=== PATIENT | female | born 2000 | race Two or more races ===

== ENCOUNTER 2023-07-18 15:57 | Outpatient (CLI) | payer OTHER | END 2023-07-18 16:04 | disposition home or self-care (01) | LOC: PRENATAL 15:57 | PROVIDERS: ATTEND Obstetrics & Gynecology Maternal & Fetal Medicine | DX: O35.3XX0 Maternal care for (suspected) damage to fetus from viral disease in mother, not applicable or unspecified (principal); O44.00 Complete placenta previa NOS or without hemorrhage, unspecified trimester; Z3A.34 34 weeks gestation of pregnancy ==

== ENCOUNTER 2023-08-16 15:22 | Inpatient (IN) | payer OTHER ==
[~2023-08-16] VITALS: Ht 170.2 cm; Wt 77.1 kg
[2023-08-18] MEDS ORDERED: PRENATABS RX T1 EACH PO (08:29)
[2023-08-18 08:42] LABS: URINE APPEARANCE Clear; URINE BILIRRUBIN Negative (NEGATIVE); URINE BLOOD Negative; URINE COLOR Yellow; URINE GLUCOSE Negative (NEGATIVE); URINE LEUKOCYTE Moderate; URINE NITRATE Negative; URINE PROTEIN Negative (NEGATIVE); URINE UROBILINOGEN 0.2 E.U./dl
[2023-08-18 08:44] LABS: URINE BACTERIA 2524.7 uL (0.0-1933); URINE EPITHELIAL CELLS 58.1 uL (0.0-38.8); URINE RBC 2.7 uL (0.0-20.8); URINE WBC 130.9 uL (0.0-23.2)
[2023-08-18 08:45] LABS: HEMATOCRIT 32.2 % (36.0-45.00); MEAN CELL VOLUME 87.6 fL (80.00-100.00); MEAN CORPUSCULAR HGB CONC 33.9 g/dl (32.0-36.0); PLATELET COUNT 222 K/uL (150-450); RED BLOOD COUNT 3.68 M/uL (4.00-6.00); RED CELL DISTRIBUTION WIDTH 13.9 % (11.5-14.5)
[2023-08-18] MEDS ORDERED: RINGERS SOLUTION,LACTATED 1,000 ML IV SCH (08:45)
[2023-08-18] MEDS ORDERED: MISOPROSTOL 25 MCG/4 ML GEL.W.APPL VAG ONE (08:45)
[2023-08-18] MEDS ORDERED: MISOPROSTOL 25 MCG/4 ML GEL.W.APPL ONE (08:50)
[2023-08-18 09:14] LABS: HEMOGLOBIN 10.9 g/dL (12.0-15.00); MEAN CORPUSCULAR HEMOGLOBIN 29.6 pg (27.00-32.0)
[2023-08-18 09:16] LABS: ALBUMIN 2.8 gm/dL (3.4-5.0); BILIRUBIN TOTAL 0.36 mg/dL (0.3-1.2); CALCIUM 8.9 mg/dL (8.5-10.1); CREATININE SERUM 0.72 mg/dL (0.55-1.02); GFR 101.29; GLOBULINA 3.7 G/DL (2.4-3.5); POTASSIUM 4.14 mEq/L (3.5-5.1); TOTAL PROTEIN 6.5 gm/dL (6.4-8.2)
[2023-08-18 09:21] LABS: INR < 0.93; PARTIAL THROMBOPLASTIN TIME 27.2 SECONDS (22.0-34.0); PROTHROMBIN TIME 9.8 SECONDS (9.0-11.5)
[2023-08-18] MEDS ORDERED: OXYTOCIN 500 ML IV SCH (12:45)
[2023-08-18] MEDS ORDERED: OXYTOCIN 20 UNITS/500ML RL PIGGYBAG IV ONE (12:50)
[2023-08-19] MEDS ORDERED: MISOPROSTOL 50 MCG TABLET VAG ONE (08:30)
[2023-08-19] MEDS ORDERED: MEPERIDINE HCL/PF 25 MG/ML VIAL IV ONE ×2 (16:15→20:15)
[2023-08-19] MEDS ORDERED: PROMETHAZINE HCL 25 MG/ML AMPUL IV ONE ×2 (16:15→20:30)
[2023-08-19] MEDS ORDERED: OXYTOCIN 20 UNITS/500ML RL PIGGYBAG IV ONE (17:30)
[2023-08-19] MEDS ORDERED: PROMETHAZINE HCL 25 MG/ML AMPUL ONE (20:21)
[2023-08-19] MEDS ORDERED: ONDANSETRON HCL 2 MG/ML VIAL IV ONE (23:30)
[2023-08-19] MEDS ORDERED: FAMOTIDINE/PF 20 MG/2 ML VIAL IV ONE (23:30)
[2023-08-20] MEDS ORDERED: METHYLERGONOVINE MALEATE 0.2 MG/ML AMPUL ONE (02:16)
[2023-08-20] MEDS ORDERED: ERYTHROMYCIN BASE 1 GM TUBE OP SCH (03:00)
[2023-08-20] MEDS ORDERED: ACETAMINOPHEN 500 MG GEL..CAP PO PRN (03:00)
[2023-08-20] MEDS ORDERED: CHLORHEXIDINE GLUCONATE 120 ML BOTTLE TOP SCH (03:00)
[2023-08-20] MEDS ORDERED: OXYTOCIN 1,000 ML IV SCH (03:00)
[2023-08-20] MEDS ORDERED: IBUprofen 400 MG TABLET PO PRN (03:00)
[2023-08-20] MEDS ORDERED: METHYLERGONOVINE MALEATE 0.2 MG/ML AMPUL IM ONE (03:00)
[2023-08-20] MEDS ORDERED: FAMOtidine 20 MG TABLET PO ONE (03:00)
[2023-08-20] MEDS ORDERED: LIDOCAINE HCL 1% 20ML VIAL IJ ONE (04:30)
[2023-08-20 08:08] LABS: HEMATOCRIT 27.4 % (36.0-45.00); HEMOGLOBIN 9.5 g/dL (12.0-15.00); MEAN CELL VOLUME 87.3 fL (80.00-100.00); MEAN CORPUSCULAR HEMOGLOBIN 30.2 pg (27.00-32.0); MEAN CORPUSCULAR HGB CONC 34.6 g/dl (32.0-36.0); PLATELET COUNT 195 K/uL (150-450); RED BLOOD COUNT 3.13 M/uL (4.00-6.00); RED CELL DISTRIBUTION WIDTH 13.6 % (11.5-14.5)
[2023-08-20] MEDS ORDERED: PNV,CALCIUM 72/IRON/FOLIC ACID 1 TAB TABLET PO SCH (09:00)
[2023-08-20] MEDS ORDERED: FERROUS SULFATE 325 MG TABLET.EC PO SCH (17:00)
== END 2023-08-22 13:39 | disposition home or self-care (01) | DRG 807 ==
LOC: LDR 08-18 07:54 → OB/GYN 08-18 14:15
PROVIDERS: ADMIT General Practice; ATTEND General Practice
PROC: 3E033VJ Introduction of Other Hormone into Peripheral Vein, Percutaneous Approach (ICD-10-PCS; 2023-08-18)
PROC: 3E0P7VZ Introduction of Hormone into Female Reproductive, Via Natural or Artificial Opening (ICD-10-PCS; 2023-08-18)
PROC: 4A1HXCZ Monitoring of Products of Conception, Cardiac Rate, External Approach (ICD-10-PCS; 2023-08-18)
PROC: 10E0XZZ Delivery of Products of Conception, External Approach (ICD-10-PCS; principal; 2023-08-20)
PROC: 0KQM0ZZ Repair Perineum Muscle, Open Approach (ICD-10-PCS; 2023-08-20)
PROC: 0UQMXZZ Repair Vulva, External Approach (ICD-10-PCS; 2023-08-20)
DX: O70.1 Second degree perineal laceration during delivery (principal); Z37.0 Single live birth; O71.82 Other specified trauma to perineum and vulva; Z3A.39 39 weeks gestation of pregnancy; Z20.822 Contact with and (suspected) exposure to COVID-19